=== PATIENT | female | born 1970 | race American Indian/Alaskan Native ===

== ENCOUNTER 2017-07-26 14:47 | Emergency (ER) | payer BC ==
[2017-07-26 14:48] VITALS: BMI 43.0
[2017-07-26 15:00] VITALS: TEMP 99.3; O2SAT 99
[2017-07-26] MEDS ORDERED: Sodium Chloride 0.9% 1,000 ML IV ONE (16:06)
--- NOTE | 2017-07-26 16:18 | C.PDOC ---
History Of Present Illness 46 y/o female presents to ED with complaints of cough and cold since monday with associated chest pain when coughing. Patient reports some phlegm when coughing and fever. Patient denies sob, n/v/d, back pain or any other complaints at this time. Time Seen by Provider: 07/26/17 15:58 Chief Complaint (Nursing): Chest Pain History Per: Patient History/Exam Limitations: no limitations Onset/Duration Of Symptoms: Days Current Symptoms Are (Timing): Still Present Quality: Burning Exacerbating Factors: Other (cough) Recent travel outside of the [place]: No Past Medical History Reviewed: Historical Data, Nursing Documentation, Vital Signs Vital Signs: Last Vital Signs Temp 99.3 F 07/26/17 14:49 Pulse 84 07/26/17 14:49 Resp 16 07/26/17 14:49 BP 118/83 07/26/17 14:49 Pulse Ox 99 07/26/17 18:08 - Medical History PMH: No Chronic Diseases Surgical History: Cholecystectomy - [facility] Procedures LAPAROSCOPIC REPAIR OF DIAPHRAGMATIC HRN, ABDOMINAL APPROACH (01/22/15) LAPAROSCOPIC VERTICAL (SLEEVE) GASTRECTOMY (01/22/15) OTHER GASTROSCOPY (01/22/15) Family History: States: No Known Family Hx - Social History Hx Tobacco Use: No Hx Alcohol Use: Yes Hx Substance Use: No - Immunization History Hx Influenza Vaccination: No Hx Pneumococcal Vaccination: No Review Of Systems Constitutional: Positive for: Fever. Negative for: Chills ENT: Positive for: Nose Congestion Cardiovascular: Positive for: Chest Pain Respiratory: Positive for: Cough. Negative for: Shortness of Breath Gastrointestinal: Negative for: Nausea, Vomiting, Diarrhea Musculoskeletal: Negative for: Back Pain Skin: Negative for: Rash Physical Exam - Physical Exam Appears: Non-toxic, No Acute Distress Skin: Normal Color, Warm, Dry, No Rash Head: Atraumatic, Normacephalic Eye(s): bilateral: Normal Inspection Nose: Normal Oral Mucosa: Moist Throat: Normal, No Erythema Neck: Normal ROM, Supple Chest: Symmetrical, No Deformity, Tenderness (reproducible chest wall) Cardiovascular: Rhythm Regular Respiratory: Normal Breath Sounds, No Rales, No Rhonchi, No Wheezing Gastrointestinal/Abdominal: Soft, No Tenderness, No Guarding, No Rebound Extremity: Normal ROM Neurological/Psych: Oriented x3 ED Course And Treatment - Laboratory Results Result Diagrams: 07/26/17 16:37 07/26/17 16:37 Lab Interpretation: No Acute Changes ECG: Interpreted By Me ECG Rhythm: Sinus Rhythm Rate From EC O2 Sat by Pulse Oximetry: 99 (RA) Pulse Ox Interpretation: Normal - Radiology CXR: Interpreted by Me CXR Interpretation: Yes: No Acute Disease Progress Note: Treated with NSS and duonebs. On re-evaluation lungs clear. 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 - Scribe Statement The provider has reviewed the documentation as recorded by the Scribraquel Nolan All medical record entries made by the Anaibraquel were at my direction and personally dictated by me. I have reviewed the chart and agree that the record accurately reflects my personal performance of the history, physical exam, medical decision making, and the department course for this patient. I have also personally directed, reviewed, and agree with the discharge instructions and disposition.
[2017-07-26] MEDS: Albuterol-Ipratrop 3 mg / 0.5 (3 ml) UD IH SCH ×3 (16:20→17:14)
[2017-07-26] MEDS ORDERED: Albuterol-Ipratrop 3 mg / 0.5 (3 ml) UD ONE (16:25)
[2017-07-26 16:41] LABS: BASO # 0.1 K/uL (0.0-0.2); BASO % 0.8 % (0.0-2.0); EOS # 0.5 K/uL (0.0-0.7); EOS % 3.8 % (0.0-4.0); HEMATOCRIT 36.2 % (34.0-47.0); LYMPH # 2.6 K/uL (1.0-4.3); LYMPH % 19.2 % (20.0-40.0); MEAN CELL VOLUME 83.4 fL (81.0-99.0); MEAN CORPUSCULAR HEMOGLOBIN 27.9 pg (27.0-31.0); MEAN CORPUSCULAR HGB CONC 33.4 g/dL (33.0-37.0); MONO # 1.3 K/uL (0.0-0.8); MONO % 9.7 % (0.0-10.0); NRBC % 0.1 % (0.0-2.0); RED CELL DISTRIBUTION WIDTH 14.2 % (11.5-14.5); WHITE BLOOD COUNT 13.7 K/uL (4.8-10.8)
[2017-07-26 16:53] LABS: ALKALINE PHOSPHATASE 47 U/L (38-126); ALT/SGPT 23 U/L (9-52); AST/SGOT 21 U/L (14-36); BILIRUBIN,TOTAL 0.4 mg/dL (0.2-1.3); BLOOD UREA NITROGEN 12 mg/dL (7-17); CALCIUM 8.9 mg/dl (8.6-10.4); CARBON DIOXIDE 24 mmol/L (22-30); CHLORIDE 102 mmol/L (98-107); GFR AFRICAN-AMERICAN > 60; GLUCOSE,RANDOM 87 mg/dL (65-105); SODIUM 138 mmol/L (132-148); TOTAL PROTEIN 7.6 g/dL (6.3-8.3)
[2017-07-26] MEDS ORDERED: Sodium Chloride 0.9% 1,000 ML ONE (16:58)
[2017-07-26 18:41] VITALS: BP 134/86; PULSE 68; RESP 20
--- NOTE | 2017-07-27 09:17 | RAD ---
HISTORY: Shortness of breath COMPARISON: No prior. TECHNIQUE: Chest PA and lateral FINDINGS: LUNGS: No active pulmonary disease. PLEURA: No significant pleural effusion identified. No pneumothorax apparent. CARDIOVASCULAR: Normal. OSSEOUS STRUCTURES: No significant abnormalities. VISUALIZED UPPER ABDOMEN: Normal. OTHER FINDINGS: None. IMPRESSION: No active disease.
--- NOTE | 2017-07-27 12:30 | CARD ---
APPROVED REPORT EKG Measurement Heart [id number] CT 176P66 [id number] <Conclusion> Normal sinus rhythm Normal ECG
== END 2017-07-26 18:41 | disposition home or self-care (01) ==
LOC: C.ER 14:47
DX: J40 Bronchitis, not specified as acute or chronic (principal)
CPT/HCPCS: 71020; 80053; 84484; 85025; 93005; 94640; 96361; 96374; 99284; J1885; J7040

== ENCOUNTER 2018-03-23 08:21 | Emergency (ER) | payer BC ==
[2018-03-23 08:35] VITALS: BMI 31.5
--- NOTE | 2018-03-23 08:57 | C.PDOC ---
History Of Present Illness 47 Y/O FEMALE PRESENTS TO ED WITH C/O RECUR SYNCOPE, CP, PALPITATIONS @ 0730. ONSET WHILE DRIVING, INITIAL CP W L SHOULDER TIGHTNESS. WORSENING PALPITATIONS. +SYNCOPAL EPISODE AFTER PARKED CAR. PS AWOKE 15 MINS LATER W PERSIST SX. AMBUL TO OFFICE BUILDING "STILL W PALPITATIONS AND DIZZINESS". PS USUALLY HAS 2 SYNCOPAL EVENTS DURING CP/PALPITATIONS BUT NOT DURING THIS EPISODE. SX NOW RESOLVED. PS W INTERMIT SIM PRIOR EPISODES SINCE 2010 BUT NOW W INCR FREQ SINCE 09/2017. "IT USED TO HAPPEN YEARLY NOW IT'S ALMOST EVERY MONTH". LAST EPISODE 2017. PS EVAL BY [employer] PROFESSOR 2015 FOR SAME S/P EEG, CARDIAC EVAL. "COULDN'T FIND ANYTHING". ADVISED TO USE SUMITRIPTAN TO PREVENT 2ND SYNCOPAL EVENT BUT DID NOT USE TODAY. NO OTHER COMPLAINTS AT THIS TIME. EXAM NAD NONTOXIC HEENT NO NYSTAGMUS NECK SUPPLE CTA B/L NO W/R/R CV RRR EXT NO EDEMA CAP REFILL <2 NEURO NO FOCAL DEF SKIN WARM DRY PSYCH ANXIOUS BUT CALM, COOPERATIVE REMAINDER NEG Time Seen by Provider: 03/23/18 08:32 Chief Complaint (Nursing): Dizziness/Lightheaded History Per: Patient History/Exam Limitations: no limitations Onset/Duration Of Symptoms: Hrs Current Symptoms Are (Timing): Still Present Activity At Onset Of Symptoms: Sitting Past Medical History Reviewed: Historical Data, Nursing Documentation, Vital Signs Vital Signs: Last Vital Signs Temp 98.4 F 03/23/18 08:31 Pulse 67 03/23/18 10:59 Resp 16 03/23/18 10:59 BP 115/64 03/23/18 10:59 Pulse Ox 100 03/23/18 11:10 - Medical History PMH: No Chronic Diseases Surgical History: Cholecystectomy - [facility] Procedures LAPAROSCOPIC REPAIR OF DIAPHRAGMATIC HRN, ABDOMINAL APPROACH (01/22/15) LAPAROSCOPIC VERTICAL (SLEEVE) GASTRECTOMY (01/22/15) OTHER GASTROSCOPY (01/22/15) Family History: States: No Known Family Hx - Social History Hx Tobacco Use: No Hx Alcohol Use: Yes Hx Substance Use: No - Immunization History Hx Influenza Vaccination: No Hx Pneumococcal Vaccination: No Review Of Systems Constitutional: Negative for: Fever, Chills Eyes: Negative for: Vision Change Cardiovascular: Positive for: Chest Pain, Palpitations Respiratory: Negative for: Shortness of Breath Gastrointestinal: Negative for: Nausea, Vomiting Neurological: Positive for: Dizziness. Negative for: Weakness, Numbness, Headache Physical Exam - Physical Exam Appears: Non-toxic, No Acute Distress Skin: Warm, Dry, No Rash Head: Atraumatic, Normacephalic Eye(s): bilateral: Normal Inspection (No nystagmus) Oral Mucosa: Moist Neck: Normal ROM, Supple Cardiovascular: Rhythm Regular Respiratory: Normal Breath Sounds, No Rales, No Rhonchi, No Wheezing Gastrointestinal/Abdominal: Soft, No Tenderness, No Guarding, No Rebound Extremity: Normal ROM, No Pedal Edema, Capillary Refill (<2 seconds) Neurological/Psych: Oriented x3, Normal Speech, Normal Cognition, Normal Cranial Nerves, Normal Motor, Normal Sensation, Other (Anxious but calm, cooperative) Gait: Steady ED Course And Treatment - Laboratory Results Result Diagrams: 03/23/18 09:27 03/23/18 09:27 ECG: Interpreted By Me ECG Rhythm: Sinus Rhythm ECG Interpretation: Normal Rate From EC (BPM) O2 Sat by Pulse Oximetry: 100 (RA) Pulse Ox Interpretation: Normal Progress - Re-Evaluation Re-evaluation Note: 03/23/18 11:09 EXAM UNCH FROM INITIAL. VSS NO RECUR CP, SYNCOPE SINCE INITIAL EVAL. D/W DR ADEN MED VULCAN CREWMEMBER WILL ADMIT 03/23/18 11:[address] Omayra FLOWERS D/W DR Crista LEE C/F PMD - Data Reviewed Data Reviewed: Lab, Diagnostic imaging, EKG, Old records - Critical Care Citical Care: Excluding Proc Time Critical Care Time: 90 minutes - Continuity of Care Discussed patient case with:: Patient, On-call PMD-pt unassigned Disposition Counseled Patient/Family Regarding: Studies Performed, Diagnosis - Disposition Disposition: HOSPITALIZED Disposition Time: 11:09 Condition: STABLE Forms: [facility] (Hungarian) - POA Present On Arrival: None - Clinical Impression Clinical Impression: Syncope, Palpitations, Chest pain - Scribe Statement The provider has reviewed the documentation as recorded by the Anaibraquel Nolan All medical record entries made by the Scribe were at my direction and personally dictated by me. I have reviewed the chart and agree that the record accurately reflects my personal performance of the history, physical exam, medical decision making, and the department course for this patient. I have also personally directed, reviewed, and agree with the discharge instructions and disposition. Decision To Admit - Pt Status Changed To: Hospital Disposition Of: Inpatient - Admit Certification Admit to Inpatient:: After my assessment, the patient will require hospitalization for at least two midnights. This is because of the severity of symptoms shown, intensity of services needed, and/or the medical risk in this patient being treated as an outpatient. - InPatient: Physician Admission Certification: I certify that this patient requires 2 or more midnights of care for the following reason:: SEE NOTE - . Bed Request Type: Telemetry Admitting Physician: Beata Lee Patient Diagnosis: Syncope, Palpitations, Chest pain
--- NOTE | 2018-03-23 09:26 | RAD ---
PROCEDURE: CHEST RADIOGRAPH, 1 VIEW HISTORY: Palpations COMPARISON: 07/26/2017 FINDINGS: LUNGS: Clear. PLEURA: No pneumothorax or pleural fluid seen. CARDIOVASCULAR: Normal. OSSEOUS STRUCTURES: No significant abnormalities. VISUALIZED UPPER ABDOMEN: Normal. OTHER FINDINGS: None. IMPRESSION: No active disease.
[2018-03-23 09:32] LABS: BASO # 0.1 K/uL (0.0-0.2); BASO % 1.3 % (0.0-2.0); EOS # 0.3 K/uL (0.0-0.7); EOS % 4.6 % (0.0-4.0); HEMOGLOBIN 12.8 g/dL (11.0-16.0); LYMPH # 1.5 K/uL (1.0-4.3); LYMPH % 26.4 % (20.0-40.0); MEAN CELL VOLUME 83.8 fL (81.0-99.0); MEAN CORPUSCULAR HEMOGLOBIN 28.8 pg (27.0-31.0); MEAN CORPUSCULAR HGB CONC 34.3 g/dL (33.0-37.0); MEAN PLATELET VOLUME 9.1 fL (7.2-11.7); MONO # 0.6 K/uL (0.0-0.8); MONO % 10.9 % (0.0-10.0); NEUT # 3.2 K/uL (1.8-7.0); NEUT % 56.8 % (50.0-75.0); RBC 4.44 Mil/uL (3.80-5.20); RED CELL DISTRIBUTION WIDTH 14.5 % (11.5-14.5); WHITE BLOOD COUNT 5.7 K/uL (4.8-10.8)
[2018-03-23 09:48] LABS: ALB/GLOB RATIO 1.1 (1.0-2.1); ALBUMIN 3.9 g/dL (3.5-5.0); ALT/SGPT 16 U/L (9-52); AST/SGOT 28 U/L (14-36); BLOOD UREA NITROGEN 10 mg/dL (7-17); CALCIUM 9.2 mg/dl (8.6-10.4); GFR AFRICAN-AMERICAN > 60; GFR NON-AFRICAN AMERICAN > 60
[2018-03-23 09:51] LABS: INR 1.1; PARTIAL THROMBOPLASTIN TIME 29 SECONDS (21-34); PROTHROMBIN TIME 11.7 SECONDS (9.7-12.2)
--- NOTE | 2018-03-23 10:20 | CT ---
PROCEDURE: CT HEAD WITHOUT CONTRAST. HISTORY: SYNCOPE COMPARISON: None available. TECHNIQUE: Axial computed tomography images were obtained through the head/brain without intravenous contrast. Radiation dose: Total exam DLP = 1007.74 mGy-cm. This CT exam was performed using one or more of the following dose reduction techniques: Automated exposure control, adjustment of the mA and/or kV according to patient size, and/or use of iterative reconstruction technique. FINDINGS: HEMORRHAGE: No intracranial hemorrhage. BRAIN: No mass effect or edema. No atrophy or chronic microvascular ischemic changes. VENTRICLES: Unremarkable. No hydrocephalus. CALVARIUM: Unremarkable. PARANASAL SINUSES: Minimal chronic sphenoid sinusitis. MASTOID AIR CELLS: Unremarkable as visualized. No inflammatory changes. OTHER FINDINGS: None. IMPRESSION: Normal CT of the Head. No intracranial mass, hemorrhage or evidence of acute infarct. Minimal chronic sphenoid sinusitis.
[2018-03-23 10:25] LABS: D DIMER < 200 ng/mlDDU (0-243)
[2018-03-23 11:00] VITALS: RESP 16
[2018-03-23 11:10] VITALS: O2SAT 100
[2018-03-23 13:58] VITALS: BP 123/93; PULSE 66; TEMP 97.5
--- NOTE | 2018-03-23 15:44 | CP.PCM.HP ---
Past Patient History - Past Medical History & Family History Past Medical History?: No - Past Social History Smoking Status: Never Smoked - CARDIAC Hx Cardiac Disorders: Yes - PULMONARY Hx Respiratory Disorders: No - NEUROLOGICAL Hx Neurological Disorder: Yes HX Cerebrovascular Accident: Yes - HEENT Hx HEENT Problems: No - RENAL Hx Chronic Kidney Disease: No - ENDOCRINE/METABOLIC Hx Endocrine Disorders: No - HEMATOLOGICAL/ONCOLOGICAL Hx Blood Disorders: No - INTEGUMENTARY Hx Dermatological Problems: No - MUSCULOSKELETAL/RHEUMATOLOGICAL Hx Musculoskeletal Disorders: No Hx Falls: No - GASTROINTESTINAL Hx Gastrointestinal Disorders: No - GENITOURINARY/GYNECOLOGICAL Hx Genitourinary Disorders: No - PSYCHIATRIC Hx Substance Use: No - SURGICAL HISTORY Hx Cholecystectomy: Yes - ANESTHESIA Hx Anesthesia: Yes Hx Anesthesia Reactions: No Hx Malignant Hyperthermia: No Meds Allergies/Adverse Reactions: Allergies Allergy/AdvReac Type Severity Reaction Status Date / Time No Known Allergies Allergy Verified 03/23/18 08:30 Physical Exam - Constitutional Appears: Well - Head Exam Head Exam: ATRAUMATIC, NORMAL INSPECTION, NORMOCEPHALIC - Eye Exam Eye Exam: EOMI, Normal appearance, PERRL Pupil Exam: NORMAL ACCOMODATION, PERRL - ENT Exam ENT Exam: Mucous Membranes Moist, Normal Exam - Neck Exam Neck exam: Positive for: Normal Inspection - Respiratory Exam Respiratory Exam: Decreased Breath Sounds - Cardiovascular Exam Cardiovascular Exam: REGULAR RHYTHM, +S1, +S2 - GI/Abdominal Exam GI & Abdominal Exam: Diminished Bowel Sounds, Soft - Rectal Exam Rectal Exam: Deferred Results - Vital Signs Recent Vital Signs: Last Vital Signs Temp 97.5 F L 03/23/18 13:57 Pulse 66 03/23/18 13:57 Resp 16 03/23/18 13:57 BP 123/93 H 03/23/18 13:57 Pulse Ox 100 03/23/18 13:57 - Labs Result Diagrams: 03/23/18 09:27 03/23/18 09:27 Labs: Laboratory Results - last 24 hr 03/23/18 03/23/18 03/23/18 09:27 09:27 09:27 WBC 5.7 D RBC 4.44 Hgb 12.8 Hct 37.2 MCV 83.8 MCH 28.8 MCHC 34.3 RDW 14.5 Plt Count 268 MPV 9.1 Neut % (Auto) 56.8 Lymph % (Auto) 26.4 [place] % (Auto) 10.9 H Eos % (Auto) 4.6 H Baso % (Auto) 1.3 Neut # (Auto) 3.2 Lymph # (Auto) 1.5 [place] # (Auto) 0.6 Eos # (Auto) 0.3 Baso # (Auto) 0.1 PT 11.7 INR 1.1 APTT 29 D-Dimer, Quantitative < 200 Sodium 142 Potassium 4.1 Chloride 107 Carbon Dioxide 26 Anion Gap 13 BUN 10 Creatinine 0.8 Est GFR ( Amer) > 60 Est GFR (Non-Af Amer) > 60 Random Glucose 74 Calcium 9.2 Total Bilirubin 0.7 AST 28 ALT 16 Alkaline Phosphatase 38 Troponin I < 0.0120 Total Protein 7.4 Albumin 3.9 Globulin 3.5 Albumin/Globulin Ratio 1.1
--- NOTE | 2018-03-25 12:33 | CARD ---
APPROVED REPORT EKG Measurement Heart [id number] [id number] <Conclusion> Normal sinus rhythm Normal ECG
== END 2018-03-23 14:03 | disposition left against medical advice (07) ==
LOC: C.ER 08:21 → C.9E 11:10 → UNDOADMIN 11:10 → C.9E 14:05
DX: R55 Syncope and collapse (principal); R00.2 Palpitations; R07.9 Chest pain, unspecified